=== PATIENT | female | born 1985 | race Caucasian/White ===

== ENCOUNTER 2022-11-25 09:04 | Emergency (ER) | payer OTHER ==
[~2022-11-25] VITALS: Ht 160 cm; Wt 59.0 kg
== END 2022-11-25 16:36 ==
LOC: ER 09:04
DX: M54.89 Other dorsalgia (principal); M79.605 Pain in left leg; Z88.6 Allergy status to analgesic agent; Z88.8 Allergy status to other drugs, medicaments and biological substances

== ENCOUNTER 2023-07-18 10:18 | Emergency (ER) | payer OTHER ==
[~2023-07-18] VITALS: Ht 160 cm; Wt 63.5 kg
[2023-07-18 12:40] LABS: HEMATOCRIT 40.1 % (36.0-45.00); MEAN CELL VOLUME 92.3 fL (80.00-100.00); MEAN CORPUSCULAR HEMOGLOBIN 32.3 pg (27.00-32.0); PLATELET COUNT 330 K/uL (150-450); RED BLOOD COUNT 4.34 M/uL (4.00-6.00)
[2023-07-18 13:04] LABS: CALCIUM 9.4 mg/dL (8.5-10.1); CREATININE SERUM 0.62 mg/dL (0.55-1.02); GFR 107.73; POTASSIUM 4.13 mEq/L (3.5-5.1)
[2023-07-18 13:11] LABS: INR 1.92
[2023-07-18 13:13] LABS: PROTHROMBIN TIME 19.2 SECONDS (9.0-11.5)
[2023-07-18 13:40] LABS: D DIMER 0.82 MG/L; PARTIAL THROMBOPLASTIN TIME 33.8 SECONDS (22.0-34.0)
== END 2023-07-18 20:41 | disposition home or self-care (01) ==
LOC: ER 10:18
PROVIDERS: Emergency Medicine
DX: I83.90 Asymptomatic varicose veins of unspecified lower extremity (principal)